=== PATIENT | female | born 1990 | race Caucasian/White ===

== ENCOUNTER 2016-09-26 03:28 | Outpatient (CLI) | payer OTHER ==
[~2016-09-26] VITALS: Ht 160 cm; Wt 100.0 kg
[2016-09-26 04:54] VITALS: Ht 160 cm; Wt 100.0 kg
--- NOTE | 2016-09-26 06:29 | HISTORY & PHYSICAL EXAMINATION ---
DATE OF ADMISSION: 09/26/2016 INDICATIONS: 1. Abdominal cramping at 32 weeks' gestational age. 2. History of delivery. ADMISSION HISTORY: The patient is a 26-year-old 9, para 0-1-7-1 with an EDC of 16 November at 32+ weeks' gestational age, who presented through the Emergency Room for evaluation of abdominal cramping and pink spotting. The patient states that she developed upper abdominal pain, continuous, starting 12-18 hours ago. She denies any nausea, vomiting, diarrhea or constipation. The patient states that she had some pink spotting. The patient was apparently evaluated in the Emergency Room at [facility], where she is receiving her care. The patient felt that the evaluation was not adequate and she came over here for a second opinion. The patient has a complicated past obstetrical history. She has had 4 elective terminations and she had 3 first trimester losses. She had one 26-week delivery 9 years ago. Because of her previous history, she has been on progesterone injections throughout this . records were available from [facility] for this evaluation. PHYSICAL EXAMINATION: GENERAL: Today shows an obese, gravid female, somewhat anxious, but in no acute distress. VITAL SIGNS: Blood pressure 130/71, a temp of 98.1, and a pulse of 106. NECK: Supple. HEART: Tachycardia. LUNGS: Clear. ABDOMEN: Obese, gravid. No palpable contractions. Positive heart tones. No tenderness. PELVIC: Shows normal external genitalia. The vaginal vault is pink and rugated. The cervix is closed. No active bleeding or old blood noted in the vaginal vault. Bimanual examination shows a posterior cervix, long, thick and closed. EXTREMITIES: Shows +3 edema. NEUROLOGIC: Grossly intact. IMPRESSION: A 26-year-old 9, para 0-1-7-1 at 32+ weeks gestational age complaining of abdominal cramping. PLAN: No uterine activity could be appreciated on the monitor today. In addition, on speculum examination, no blood in the vagina or dilatation. records from her provider are reviewed. There had been some question of a finding of a placental leak on an ultrasound last week. No active bleeding noted by that provider. The patient is on subutex and has been abusing cannabis during the . The patient has been reassured today that there is no sign of delivery. No active bleeding has been noted. I suggest that the patient follow up with her provider for her continued care. All questions answered of the patient. RAFAT
== END 2016-09-26 05:24 | disposition home or self-care (01) ==
LOC: C.LD 03:28 → C.OPB 03:28
PROVIDERS: ATTEND Obstetrics & Gynecology
DX: O26.853 Spotting complicating pregnancy, third trimester (principal); R10.9 Unspecified abdominal pain; O99.213 Obesity complicating pregnancy, third trimester; E66.9 Obesity, unspecified; Z3A.32 32 weeks gestation of pregnancy